=== PATIENT | male | born 1995 | race Two or more races ===

== ENCOUNTER 2024-10-13 17:55 | Emergency (ER) | payer OTHER ==
[~2024-10-13] VITALS: Ht 170.2 cm; Wt 78.0 kg
[2024-10-13] MEDS ORDERED: IPRATROPIUM/ALBUTEROL SULFATE 3 ML AMPUL.NEB IH SCH (19:45)
[2024-10-13] MEDS ORDERED: METHYLPREDNISOLONE SOD SUCC 125 MG VIAL IV ONE (19:45)
[2024-10-13] MEDS ORDERED: METHYLPREDNISOLONE SOD SUCC 125 MG VIAL ONE (20:29)
[2024-10-13 21:14] LABS: HEMATOCRIT 48.3 % (39.0-48.0); HEMOGLOBIN 16.7 g/dL (13-16.00); MEAN CORPUSCULAR HEMOGLOBIN 31.1 pg (27.00-32.0); MEAN CORPUSCULAR HGB CONC 34.6 g/dl (32.0-36.0); PLATELET COUNT 205 K/uL (150-450); RED BLOOD COUNT 5.36 M/uL (4.00-6.00); RED CELL DISTRIBUTION WIDTH 12.3 % (11.5-14.5)
[2024-10-13] MEDS ORDERED: IPRATROPIUM/ALBUTEROL SULFATE 3 ML AMPUL.NEB IH ONE (21:40)
[2024-10-13] MEDS ORDERED: BENZONATATE200 M1 PO (22:10)
[2024-10-13] MEDS ORDERED: IPRATROPIU0.2 MG/1 M IH (22:10)
[2024-10-13] MEDS ORDERED: MEDROLPACK PO (22:10)
[2024-10-13] MEDS ORDERED: PROAIR RESPICL90 MCG IH (22:10)
[2024-10-13] MEDS ORDERED: ALBUTEROL1.25 MG/3 IH (22:10)
[2024-10-13] MEDS ORDERED: ZITHROMAX500 MG PO (22:10)
[2024-10-13] MEDS ORDERED: SINGULAIR10 MG PO (22:15)
== END 2024-10-13 22:47 | disposition home or self-care (01) ==
LOC: ER 17:58
PROVIDERS: General Practice
DX: J45.901 Unspecified asthma with (acute) exacerbation (principal); Z20.822 Contact with and (suspected) exposure to COVID-19; Z91.013 Allergy to seafood